=== PATIENT | female | born 1995 | race Asian ===

== ENCOUNTER 2018-03-20 05:15 | Emergency (ER) | payer BC ==
[~2018-03-20] VITALS: Ht 154.9 cm; Wt 56.7 kg
[2018-03-20 05:30] VITALS: BP 148/89
[2018-03-20] MEDS ORDERED: Morphine Sulfate 4mg/ml Inj (IV/IM USE ONLY) IVP ONE ×2 (05:30→06:15)
--- NOTE | 2018-03-20 05:30 | Emergency Room Report ---
History of Present Illness General Chief Complaint: Abdominal Pain Source: Patient Present Illness [facility] This is a 22-year-old female with no past medical history. She presents chief complaint abdominal pain. Onset for the last 2 days. Has nausea and vomiting. No diarrhea. No fever or chills. Pain is 10 out of 10. Sharp in nature. No radiation. Nothing made it better. Nothing made it worse. Decreased appetite. Allergies: Coded Allergies: No Known Allergies (Unverified , 03/20/18) Patient History Past Medical History: none, see triage record, old chart reviewed Past Surgical History: none Pertinent Family History: none Social History: Denies: smoking Last Menstrual Period: 03/16/2018 Now: No : 0 Para: 0 Immunizations: other Reviewed Nursing Documentation: PMH: Agreed; PSxH: Agreed Nursing Documentation-PMH Past Medical History: No History, Except For Hx Asthma: Yes Review of Systems Eye: Denies: eye pain, blurred vision ENT: Denies: ear pain, nose congestion, throat swelling Respiratory: Denies: cough, shortness of breath Cardiovascular: Denies: chest pain, palpitations Gastrointestinal: Reports: abdominal pain, nausea, vomiting; Denies: diarrhea Musculoskeletal: Denies: back pain, joint pain Skin: Denies: rash Neurological: Denies: headache, numbness Endocrine: Denies: increased thirst, increased urine Hematologic/Lymphatic: Denies: easy bruising All Other Systems: negative except mentioned in HPI Physical Exam Vital Signs Date Time Temp Pulse Resp B/P (MAP) Pulse Ox O2 Delivery O2 Flow Rate FiO2 03/20/18 05:18 98.2 105 16 133/65 100 Room Air vitals normal Sp02 EP Interpretation: reviewed, normal General Appearance: well appearing, no apparent distress, alert Head: normocephalic, atraumatic Eyes: bilateral eye PERRL, bilateral eye EOMI ENT: hearing grossly normal, normal pharynx Neck: full range of motion, supple, no meningismus Respiratory: chest non-tender, lungs clear, normal breath sounds Cardiovascular #1: regular rate, rhythm, no murmur Gastrointestinal: no mass, no organomegaly, no bruit, non-distended, tenderness - Diffuse, decreased bowel sounds Musculoskeletal: back normal, gait/station normal, normal range of motion Psychiatric: mood/affect normal Skin: warm/dry Medical Decision Making Diagnostic Impression: Primary Impression: Abdominal pain Qualified Codes: R10.84 - Generalized abdominal pain ER Course Patient with abdominal pain. Labs unremarkable except for slight elevation of WBC. Patient has not given a urine sample yet. CT pending. I will sign this patient out to Dr. Liz for final disposition. Lab Results Impression labs unremarkable Last Vital Signs Date Time Temp Pulse Resp B/P (MAP) Pulse Ox O2 Delivery O2 Flow Rate FiO2 03/20/18 05:18 98.2 105 16 133/65 100 Room Air Status: improved Condition: Stable Scripts No Active Prescriptions or Reported Meds Refugio Tam MD Mar 20, 2018 05:30
[2018-03-20 05:55] LABS: BASOPHILS % (AUTO) 0.7 % (0.0-2.0); HEMATOCRIT 47.2 % (37.0-47.0); HEMOGLOBIN 16.5 G/DL (12.0-16.0); LYMPHOCYTES % (AUTO) 20.8 % (20.0-45.0); MEAN CORPUSCULAR VOLUME 90 FL (80-99); MONOCYTES % (AUTO) 6.2 % (1.0-10.0); NEUTROPHILS % (AUTO) 72.2 % (45.0-75.0); PLATELET COUNT 358 K/UL (150-450); RED BLOOD COUNT 5.23 M/UL (4.20-5.40); RED CELL DISTRIBUTION WIDTH 11.1 % (11.6-14.8); WHITE BLOOD COUNT 13.6 K/UL (4.8-10.8)
[2018-03-20] MEDS ORDERED: Ketorolac 30mg Inj IV ONE (06:00)
[2018-03-20 06:19] LABS: ANION GAP 18 mmol/L (5-15); BLOOD UREA NITROGEN 17 mg/dL (7-18); CALCIUM 10.3 MG/DL (8.5-10.1); CARBON DIOXIDE 22 MMOL/L (21-32); CHLORIDE 95 MMOL/L (98-107); CREATININE 0.9 MG/DL (0.55-1.30); POTASSIUM 4.1 MMOL/L (3.5-5.1); SODIUM 134 MMOL/L (136-145)
[2018-03-20 06:35] LABS: ALANINE AMINOTRANSFERASE 25 U/L (12-78); ALBUMIN/GLOBULIN RATIO 0.8 (1.0-2.7); ALKALINE PHOSPHATASE 82 U/L (46-116); ASPARTATE AMINO TRANSFERASE 51 U/L (15-37); BILIRUBIN,TOTAL 1.5 MG/DL (0.2-1.0)
[2018-03-20 06:44] LABS: APPEARANCE,URINE CLEAR; BILIRUBIN, URINE 1+ (NEGATIVE); GLUCOSE, URINE (UA) NEGATIVE (NEGATIVE); KETONES,URINE 3+ (NEGATIVE); LEUKOCYTE ESTERASE ,URINE 2+ (NEGATIVE); NITRITE,URINE NEGATIVE (NEGATIVE); PH,URINE 7 (4.5-8.0); PROTEIN,URINE 2+ (NEGATIVE); UROBILINOGEN,URINE 1 MG/DL (0.0-1.0)
[2018-03-20 06:45] LABS: BILIRUBIN,DIRECT 0.1 MG/DL (0.0-0.3)
[2018-03-20 07:00] LABS: COLOR,URINE YELLOW
[2018-03-20] MEDS ORDERED: Dicyclomine HCl 10mg/5ml oral soln ONE (07:47)
[2018-03-20] MEDS ORDERED: LORazepam Inj 2mg/ml 1ml IV ONE (08:00)
[2018-03-20] MEDS ORDERED: Dicyclomine HCl 10mg/5ml oral soln ORAL ONE (08:00)
[2018-03-20] MEDS ORDERED: ZOFRAN4 M3 ORAL (08:46)
[2018-03-20] MEDS ORDERED: DICYCLOMINE HCL10 MG PO (08:46)
--- NOTE | 2018-03-20 08:51 | Diagnostic Imaging Report ---
Indication: Abdominal pain for 2 days Technique: Spiral acquisitions obtained through the abdomen and pelvis. No oral contrast utilized, per emergency room physician request No IV contrast utilized, per referring physician request.. Multiplanar reconstructions were generated. Total dose length product 423.18 mGycm. CTDIvol(s) 8.93 mGy. Dose reduction achieved using automated exposure control Comparison: None Findings: The appendix is normal. Questionable small colonic diverticulum is seen at the splenic flexure. No evidence of diverticulitis. No small bowel distention. No free or loculated intraperitoneal gas or fluid is evident. The stomach is distended with fluid. Distal esophagus is unremarkable. Lack of IV contrast limits assessment of the solid organs. There is some focal fatty change in the liver in the usual location adjacent to the falciform ligament. No other focal liver abnormality. The gallbladder, bile ducts, pancreas, spleen, adrenals, kidneys are all unremarkable. No retroperitoneal or mesenteric mass or adenopathy. No pelvic mass or adenopathy. The included lung bases are clear. The bones are unremarkable. Impression: No acute process Equivocal colonic diverticulosis Focal fatty changes in the liver adjacent to the falciform ligament This essentially agrees with the [facility] preliminary report, with minor variation The CT scanner at [facility] is accredited by the [employer] and the scans are performed using protocols designed to limit radiation exposure to as low as reasonably achievable to attain images of sufficient resolution adequate for diagnostic evaluation.
[2018-03-20 08:53] VITALS: BP 113/80
--- NOTE | 2018-03-20 08:57 | Diagnostic Imaging Report ---
Indication: Abdominal pain, nausea, vomiting, abnormal liver function tests Technique: Cook-scale and duplex images of the upper abdomen were obtained Comparison: Reference made to CT scan performed one hour earlier Findings: Gallbladder is unremarkable, without stones, wall thickening, nor pericholecystic fluid. Sonographic Romeo's sign is negative. Common bile duct measures for mm in diameter. No intrahepatic biliary ductal dilatation. Liver demonstrates normal echogenicity, no focal abnormality. Portal vein and hepatic veins are patent. Pancreas is unremarkable. Spleen is unremarkable. Left kidney measures 11 cm in length. Right kidney measures 11.5 cm length. Both kidneys demonstrate normal echogenicity. There is no hydronephrosis. No focal abnormality . Non-aneurysmal abdominal aorta . Impression: Negative. No evidence of gallstones, dilated ducts, or other acute or significant findings
== END 2018-03-20 08:53 | disposition home or self-care (01) ==
LOC: EDBD 05:15 → EMR 05:33
DX: R10.84 Generalized abdominal pain (principal); R11.2 Nausea with vomiting, unspecified; J45.909 Unspecified asthma, uncomplicated
CPT/HCPCS: 36415; 74176; 76700; 80053; 81003; 81025; 82248; 83690; 84703; 85025; 96361; 96374; 96375; 96376; 99284; J1885; J2270; J2405